=== PATIENT | female | born 1940 | race Caucasian/White ===

== ENCOUNTER → 2018-08-11 13:44 | Outpatient (CLI) | payer MEDICARE, OTHER, SELFPAY ==
--- NOTE | 2018-08-11 14:56 | P.PCN_ITS ---
Cardiac Stress Test Report Referral & Results Date Patient Seen: 08/11/18 Requesting provider: Sergo Quiñonez Indication: Abnormal rest ECG with T-wave inversions laterally Rest ECG: T wave changes as above otherwise unremarkable Procedure Note: Today following both written and verbal informed consent the patient was exercised according to a standard Pedro Luis protocol patient went for a total of 5 min 6 sec achieving a maximum heart rate of 137 maximum systolic blood pressure of 210. This is approximately 7.0 METS. Exercise was terminated at this point because of target having min met. Patient was also given Cardiolite through a previously started Hep-Lock IV by the audiometric technician approximately 1 minute prior to the cessation of exercise. No ST-T segment changes Normal heart rate and blood pressure response Functional aerobic impairment rated-5% on the active scale or 105% of normal Impression: No evidence of ischemia Perfusion imaging reported separately Better than average exercise capacity Please note: Actual ECG tracings can be found in the PACS system.
--- NOTE | 2018-08-12 13:36 | DI.NM.S_ITS ---
DATE OF SERVICE: 08/11/2018 PROCEDURE: Pharmacological perfusion study. INDICATION: Chest pain with underlying hypertension, hyperlipidemia. RADIOPHARMACEUTICAL: 26.1 mCi technetium-99m Myoview IV was injected at stress, and 25.6 mCi technetium-99m Myoview IV was injected at rest. CARDIAC STRESS: Patient underwent exercise perfusion study under the supervision of an attending staff. Patient walked on Pedro Luis protocol for 5 minutes 6 seconds, achieved 7 METs of workload, 96% of target heart rate. There was hypertensive blood pressure response. Resting blood pressure 148/90. Peak blood pressure 210/90. Functional aerobic impairment -5%. Baseline EKG revealed sinus rhythm. Stress EKG did not reveal any obvious inducible ischemic changes. There were no significant arrhythmias. Patient felt fatigued. RAW DATA: There was adequate myocardial uptake. GATED STUDY: Stress LV ejection fraction 89% without any obvious wall motion abnormalities. Resting end-diastolic volume 57 mL. No transient ischemic dilatation. TID ratio 0.86, which is within normal limits. Lung/heart ratio is 0.31, which is within normal limits. MYOCARDIAL PERFUSION SCAN: Stress supine and resting supine images revealed normal myocardial perfusion. CONCLUSION: This is a normal myocardial perfusion study. LV function is preserved. Functional aerobic impairment -5%. Hypertensive blood pressure response. Overall, this is a low-risk myocardial perfusion study. KAMILLE PEÑA - [employer]BER/fn/kv doc#: [id number]/job#: [id number] dd: 08/12/2018 12:55:00 dt: 08/12/2018 13:31:00 DICTATING MD/COPIES TO: Peter Begum MD COPIES MNE: ESTEPHANIA
== END ==
PROVIDERS: Visit Provider Physician Assistant Medical
DX: R07.9 Chest pain, unspecified (principal); I10 Essential (primary) hypertension; E78.5 Hyperlipidemia, unspecified
CPT/HCPCS: 78452; 93016; 93017; 93018; A9502

== ENCOUNTER 2019-06-25 19:42 | Emergency (ER) | payer MEDICARE, OTHER, SELFPAY ==
--- NOTE | 2019-06-25 19:46 | DI.RAD.S_ITS ---
PROCEDURE: XR CHEST 1V INDICATIONS: chest pain TECHNIQUE: One view of the chest was acquired. COMPARISON: None. FINDINGS: Surgical changes and devices: Mild residual contrast is noted within the kidneys from recent CT exam. Lungs and pleura: Lungs are clear. No pleural effusions or pneumothorax. Mediastinum: Mediastinal contours appear normal. Heart size is normal. Bones and chest wall: No suspicious bony lesions. Overlying soft tissues appear unremarkable. IMPRESSION: No acute pulmonary process. Dictated by: Ann Marie Howard M.D. on 06/25/2019 at 20:56 Approved by: Ann Marie Howard M.D. on 06/25/2019 at 20:57
[2019-06-25 20:00] VITALS: BP 174/70; PULSE 70; RESP 18; O2SAT 98
[2019-06-25 20:00] LABS: Add Manual Diff / Slide Review NO; Basophils Absolute Auto 100 /uL (0-100); Basophils Percent Auto 1.2 % (0-2); Eosinophils Absolute Auto 100 /uL (0-450); Eosinophils Percent Auto 2.4 % (2-4); Hemoglobin 13.6 g/dL (12.0-16.0); Lymphocytes Absolute Auto 2400 /uL (1100-4500); Lymphocytes Percent Auto 38.5 % (25-40); Mean Corpuscular HGB Conc 34.1 % (30-36); Mean Corpuscular Hemoglobin 29.7 PG (26-34); Monocytes Absolute Auto 400 /uL (0-900); Monocytes Percent Auto 6.4 % (3-14); Neutrophils Absolute Auto 3200 /uL (1500-7000); Neutrophils Percent Auto 51.5 % (50-75); Platelet Count 231 X10^3/uL (150-400); Red Cell Distribution Width 13.1 % (11.6-14.8); White Blood Cell Count 6.2 X10^3/uL (4.5-11.0)
--- NOTE | 2019-06-25 20:07 | DI.CT.S_ITS ---
PROCEDURE: CT ANGIO CHEST PE PROTOCOL INDICATIONS: + dimer sob TECHNIQUE: After the administration of intravenous contrast, 2 mm thick sections acquired from the pulmonary apices to the posterior costophrenic angles. 3-dimensional maximum intensity projection (MIP) coronal and sagittal reformats were then acquired through the thorax. For radiation dose reduction, the following was used: automated exposure control, adjustment of mA and/or kV according to patient size. COMPARISON: None. FINDINGS: Image quality: Excellent. Pulmonary arteries: Pulmonary arteries are normal in size, and demonstrate no intraluminal filling defects to suggest central pulmonary embolism. Lungs and pleura: 4 mm right middle lobe nodule on series 6 image 165. No priors are available for comparison. No pleural effusions or pneumothorax. Central and peripheral airways are patent. Mediastinum: Heart size is normal, without pericardial effusion. No mediastinal or hilar adenopathy. Thoracic aorta is normal in caliber and enhancement. Esophagus is normal in caliber, without hiatal hernia. Bones and chest wall: No suspicious bony lesions. Ribs and thoracic spine appear intact throughout. Thyroid gland is unremarkable. No axillary or supraclavicular adenopathy. Abdomen: Visualized upper abdominal solid organs appear normal in the early arterial phase of enhancement. IMPRESSION: 1. No pulmonary embolism. 2. 4 mm nonspecific right middle lobe nodule. No priors are available for comparison. Recommend interval followup is below. Fleischner Society criteria for SOLID lung nodule followup. Nodule size (mm)Low-risk patientHigh-risk patient<6 (single or multiple)No routine followup.Optional CT at 12 months. 6-8 (single or multiple)CT at 6-12 months, then optional CT at 18-24 mo.CT at 6-12 months, then CT at 18-24 months. >8 (single)CT, PET-CT, or biopsy at 3 months. Same as for low-risk pts. >8 (multiple)CT at 3-6 months, then optional CT at 18-24 mo.CT at 3-6 months, then CT at 18-24 months. Recommendations do not apply to lung cancer screening, patients with immunosuppression, or patients with known primary cancer. Dictated by: Ann Marie Howard M.D. on 06/25/2019 at 20:43 Approved by: Ann Marie Howard M.D. on 06/25/2019 at 20:46
[2019-06-25 20:14] LABS: Alanine Aminotransferase 31 IU/L (9-52); Albumin 4.1 g/dL (3.5-5.0); Albumin Globulin Ratio 1.2 (1.0-2.8); Alkaline Phosphatase 80 U/L (38-126); Aspartate Aminotransferase 33 IU/L (14-36); BUN Creatinine Ratio 24.4 (6-22); Bilirubin Total 0.3 mg/dL (0.2-1.3); Blood Urea Nitrogen 22 mg/dL (7-17); Calcium 9.4 mg/dL (8.4-10.2); Carbon Dioxide 25 mmol/L (22-32); Chloride 107 mmol/L (98-107); Creatine Kinase 82 U/L (30-135); Estimated Glomerular Filt Rate > 60.0 mL/min (>60); Globulin 3.4 g/dL (1.7-4.1); Glucose 95 mg/dL (80-110); HEMOLYSIS < 15 (0-50); Lipase 313 U/L (23-300); Potassium 3.7 mmol/L (3.4-5.1); Sodium 140 mmol/L (137-145); Total Protein 7.5 g/dL (6.3-8.2)
--- NOTE | 2019-06-25 20:14 | ED_ITS ---
HPI - Recheck/Abnormal Lab/Rx General Chief Complaint: Shortness of Breath/Dyspnea Stated Complaint: abnormal lab results, sent by her doctor Time Seen by Provider: 06/25/19 19:49 Source: patient Mode of arrival: Ambulatory Limitations: no limitations History of Present Illness HPI narrative: Patient is a 78-year-old female who is brought in at the request of her PCP for an elevated D-dimer an abnormal EKG. Patient was seen by her PCP today because she actually had spontaneous bruise on her right ankle from 2 w eeks ago which has now improved. She had an episode of shallow breathing and shortness of breath and dizziness 2 days ago. She says she just did not feel quite right she needed to lay down for most of the night but eventually started feeling better and she was doing okay yesterday. She denies any shortness of breath cough hemoptysis recent travel or any other symptoms. She does have a new right bundle branch block from 2014. MD complaint: abnormal lab Related Data Home Medications Medication Instructions Recorded Confirmed alprazolam 0.25 mg PO DAILY PRN 06/25/19 06/25/19 ascorbic acid (vitamin C) [Vitamin 1,000 mg PO DAILY 06/25/19 06/25/19 C] cholecalciferol (vitamin D3) 1,000 unit PO DAILY 06/25/19 06/25/19 [Vitamin D3] nortriptyline 10 mg PO BEDTIME PRN 06/25/19 06/25/19 vitamins A,C,[id number] [ICaps 1 cap PO DAILY 06/25/19 06/25/19 AREDS] Allergies Allergy/AdvReac Type Severity Reaction Status Date / Time Sulfa (Sulfonamide Allergy Verified 06/25/19 19:53 Antibiotics) Review of Systems Review of Systems Narrative: GENERAL: Denies chills, fatigue, malaise, fever, sweats, travel HEENT: Denies sinus pain, ear pain, sore throat, difficulty swallowing, neck pain RESPIRATORY: See HPI CARDIOVASCULAR: Denies chest pain, palpitations, orthopnea, edema GASTROINTESTINAL: Denies nausea, vomiting, abdominal pain, diarrhea, cons tipation, melena. : Denies dysuria, frequency, incontinence, hematuria, urinary retention, flank pain. MUSCULOSKELETAL: Denies weakness, joint pain, or bony pain SKIN: Healing contusion right leg NEUROLOGIC: Denies weakness, dizziness, headache, numbness, change in speech, confusion PSYCHIATRIC: No concerning psychosocial issues. 12 point review of systems is negative except for those stated above and HPI Patient History Medical History Hyperlipidemia (Acute) Hypertension (Acute) Substance Use Type: does not use Exam Initial Vital Signs Initial Vital Signs: Vital Signs Pulse Rate 70 06/25/19 20:00 Respiratory Rate 18 06/25/19 20:00 Blood Pressure 174/70 H 06/25/19 20:00 Pulse Oximetry 98 06/25/19 20:00 GENERAL: Well-appearing, well-nourished and in no acute distress. HEENT: Head atraumatic,EOMI, pupils reactive, face symmetric, moist mucous membranes CARDIOVASCULAR: Regular rate and rhythm without murmurs, rubs or gallops. RESPIRATORY: Breath sounds equal bilaterally, no wheezes rales or rhonchi. ABDOMEN: Soft, nontender. Normoactive bowel sounds all 4 quadrants. No guarding or rebound. EXTREMITIES: Normal range of motion, no clubbing or edema. Neurovascularly intact. no significant swelling no bony deformity distal pedal pulse intact NEUROLOGICAL: Alert and oriented x4.Normal gait and speech. SKIN: Warm, dry, no laceration, no petechiae, no rashes or lesions. healing contusion right ankle Course Orders Ordered: ED Orders 06/25/19 19:46 XR chest 1V Stat EKG-12 Lead Stat 06/25/19 19:50 BNP [B Type Natriuretic Peptide] Stat Complete Blood Count AUTO DIFF Stat Comprehensive Metabolic Panel Stat Lipase Stat Partial Thromboplastin Time Stat Prothrombin Time INR Stat Troponin & CK Cardiac Panel Stat 06/25/19 19:55 EKG-12 Lead Stat 06/25/19 20:07 CT angio chest PE protocol Stat 06/25/19 20:52 US periph venous low extrem bi Stat Discontinued Medications Sodium Chloride (Normal Saline 0.9%) 1,000 mls @ 150 mls/hr IV CONT SANDRA Last Admin: 06/25/19 20:46 Dose: 150 mls/hr Documented by: DINA Vital Signs Vital signs: Vital Signs - 8 hr 06/25/19 20:00 06/25/19 20:15 06/25/19 20:49 Pulse Rate 70 78 74 Respiratory Rate 18 18 12 Blood Pressure [Left Arm] 174/70 H 148/74 H 143/71 H Pulse Oximetry 98 98 98 06/25/19 21:00 06/25/19 21:17 Pulse Rate 64 64 Respiratory Rate 15 11 L Blood Pressure [Left Arm] 140/68 135/68 Pulse Oximetry 95 98 MDM - Recheck/Abnormal Lab/Rx Lab Data Attestation: I reviewed the patient's lab results. Result diagrams: 06/25/19 19:50 06/25/19 19:50 Labs: Lab Results 06/25/19 06/25/19 06/25/19 Range/Units 19:50 19:50 19:50 WBC 6.2 (4.5-11.0) X10^3/uL RBC 4.60 (4.0-5.2) X10^6/uL Hgb 13.6 (12.0-16.0) g/dL Hct 40.0 (36-46) % MCV 87.0 (80-100) fL MCH 29.7 (26-34) PG MCHC 34.1 (30-36) % RDW 13.1 (11.6-14.8) % Plt Count 231 (150-400) X10^3/uL Neut % (Auto) 51.5 (50-75) % Lymph % (Auto) 38.5 (25-40) % [place] % (Auto) 6.4 (3-14) % Eos % (Auto) 2.4 (2-4) % Baso % (Auto) 1.2 (0-2) % Neut # (Auto) 3200 (7336-5294) /uL Lymph # (Auto) 2400 (6193-8801) /uL [place] # (Auto) 400 (0-900) /uL Eos # (Auto) 100 (0-450) /uL Baso # (Auto) 100 (0-100) /uL PT (10.1-12.7) SECONDS INR (0.9-1.3) APTT (26.4-36.2) SECONDS Sodium 140 (137-145) mmol/L Potassium 3.7 (3.4-5.1) mmol/L Chloride 107 (98-107) mmol/L Carbon Dioxide 25 (22-32) mmol/L BUN 22 H (7-17) mg/dL Creatinine 0.90 (0.52-1.04) mg/dL Estimated GFR > 60.0 (>60) mL/min BUN/Creatinine Ratio 24.4 H (6-22) Glucose 95 (80-110) mg/dL Calcium 9.4 (8.4-10.2) mg/dL Total Bilirubin 0.3 (0.2-1.3) mg/dL AST 33 (14-36) IU/L ALT 31 (9-52) IU/L Alkaline Phosphatase 80 (38-126) U/L Total Creatine Kinase 82 (30-135) U/L CK-MB (CK-2) TNP CK-MB (CK-2) Rel Index TNP Troponin I < 0.012 (0.01-0.034) ng/mL B-Natriuretic Peptide < 100 (<100) Total Protein 7.5 (6.3-8.2) g/dL Albumin 4.1 (3.5-5.0) g/dL Globulin 3.4 (1.7-4.1) g/dL Albumin/Globulin Ratio 1.2 (1.0-2.8) Lipase 313 H (23-300) U/L 06/25/19 Range/Units 19:50 WBC (4.5-11.0) X10^3/uL RBC (4.0-5.2) X10^6/uL Hgb (12.0-16.0) g/dL Hct (36-46) % MCV (80-100) fL MCH (26-34) PG MCHC (30-36) % RDW (11.6-14.8) % Plt Count (150-400) X10^3/uL Neut % (Auto) (50-75) % Lymph % (Auto) (25-40) % [place] % (Auto) (3-14) % Eos % (Auto) (2-4) % Baso % (Auto) (0-2) % Neut # (Auto) (0274-4143) /uL Lymph # (Auto) (0085-3284) /uL [place] # (Auto) (0-900) /uL Eos # (Auto) (0-450) /uL Baso # (Auto) (0-100) /uL PT 11.4 (10.1-12.7) SECONDS INR 1.0 (0.9-1.3) APTT 30 (26.4-36.2) SECONDS Sodium (137-145) mmol/L Potassium (3.4-5.1) mmol/L Chloride (98-107) mmol/L Carbon Dioxide (22-32) mmol/L BUN (7-17) mg/dL Creatinine (0.52-1.04) mg/dL Estimated GFR (>60) mL/min BUN/Creatinine Ratio (6-22) Glucose (80-110) mg/dL Calcium (8.4-10.2) mg/dL Total Bilirubin (0.2-1.3) mg/dL AST (14-36) IU/L ALT (9-52) IU/L Alkaline Phosphatase (38-126) U/L Total Creatine Kinase (30-135) U/L CK-MB (CK-2) CK-MB (CK-2) Rel Index Troponin I (0.01-0.034) ng/mL B-Natriuretic Peptide (<100) Total Protein (6.3-8.2) g/dL Albumin (3.5-5.0) g/dL Globulin (1.7-4.1) g/dL Albumin/Globulin Ratio (1.0-2.8) Lipase (23-300) U/L Imaging Data CT scan - chest: Radiologist's impression: PROCEDURE: CT ANGIO CHEST PE PROTOCOL INDICATIONS: + dimer sob TECHNIQUE: After the administration of intravenous contrast, 2 mm thick sections acquired from the pulmonary apices to the posterior costophrenic angles. 3-dimensional maximum intensity projection (MIP) coronal and sagittal reformats were then acquired through the thorax. For radiation dose reduction, the following was used: automated exposure control, adjustment of mA and/or kV according to patient size. COMPARISON: None. FINDINGS: Image quality: Excellent. Pulmonary arteries: Pulmonary arteries are normal in size, and demonstrate no intraluminal filling defects to suggest central pulmonary embolism. Lungs and pleura: 4 mm right middle lobe nodule on series 6 image 165. No priors are available for comparison. No pleural effusions or pneumothorax. Central and peripheral airways are patent. Mediastinum: Heart size is normal, without pericardial effusion. No mediastinal or hilar adenopathy. Thoracic aorta is normal in caliber and enhancement. Esophagus is normal in caliber, without hiatal hernia. Bones and chest wall: No suspicious bony lesions. Ribs and thoracic spine appear intact throughout. Thyroid gland is unremarkable. No axillary or supraclavicular adenopathy. Abdomen: Visualized upper abdominal solid organs appear normal in the early arterial phase of enhancement. IMPRESSION: 1. No pulmonary embolism. 2. 4 mm nonspecific right middle lobe nodule. No priors are available for comparison. Recommend interval followup is below. Fleischner Society criteria for SOLID lung nodule followup. Nodule size (mm)Low-risk patientHigh-risk patient<6 (single or multiple)No r outine followup.Optional CT at 12 months. 6-8 (single or multiple)CT at 6-12 months, then optional CT at 18-24 mo.CT at 6-12 months, then CT at 18-24 months. >8 (single)CT, PET-CT, or biopsy at 3 months. Same as for low-risk pts. >8 (multiple)CT at 3-6 months, then optional CT at 18-24 mo.CT at 3-6 months, then CT at 18-24 months. Recommendations do not apply to lung cancer screening, patients with immunosuppression, or patients with known primary cancer. Dictated by: Ann Marie Howard M.D. on 06/25/2019 at 20:43 Venous US: Radiologist's impression: PROCEDURE: US PERIPH VENOUS LOW EXTREM BI INDICATIONS: ELEVATED D-DIMER; EDEMA TECHNIQUE: Real-time imaging, as well as color and pulse Doppler interrogation, were performed of the deep veins of both legs from the inguinal ligament to the popliteal fossa. COMPARISON: None. FINDINGS: Right: The common femoral, femoral and popliteal veins are normally compressible, and free of intraluminal thrombus. Color and pulse Doppler demonstrate normal phasic intravascular flow. There is normal augmentation response to distal compression maneuver. Left: The common femoral, femoral and popliteal veins are normally compressible, and free of intraluminal thrombus. Color and pulse Doppler demonstrate normal phasic intravascular flow. There is normal augmentation response to distal compression maneuver. IMPRESSION: No deep venous thrombosis. Dictated by: Ann Marie Howard M.D. on 06/25/2019 at 21:46 ECG Data Attestation: I personally reviewed and interpreted this ECG as follows: Prior ECG tracings: available for review (Stent with records from 2014) Interpretation: Normal sinus rhythm rate 72 p.r. 158 QRS 32 QTC 74 right bundle branch block noted new from 1999 MDM Narrative Medical decision making narrative: Patient has a negative troponin and no chest pain no persistent shortness of breath or hemoptysis. She has no signs of a pulmonary embolism. She had Doppler done on her right leg today which was negative she actually had bilateral Dopplers done in the emergency department which are both negative. No sign of blood clot. Patient will be discharged home. Discussed with her that she actually does have a pulmonary nodule which needs to be followed up as an outpatient. I discussed all findings with the patient, Education has been performed regarding treatment plan, diagnosis, warning signs and symptoms and all concerns have been addressed. Verbally agree with and understood all of the above. Discharge Plan Departure Patient Disposition: Home Clinical Impression: Feared complaint without diagnosis, Incidental lung nodule Discharge Date/Time: 06/25/19 22:00 Instructions: DI for Pulmonary Nodule Activity Restrictions/Additional Instructions: *You have been diagnosed with no blood clot is found. *What to do: You do have a very small pulmonary nodule in her lung. This needs to be followed with her PCP with repeat x-ray or CT in about 3 months *Continue to take medications as directed *Follow up with your primary care provider in 2-3 days *Return to ER if you should have chest pain, shortness of breath or palpitations or any new, worsening or concerning symptoms Prescriptions: No Action ascorbic acid (vitamin C) [Vitamin C] 1,000 mg tablet 1,000 mg PO DAILY RF: 0 alprazolam 0.25 mg tablet 0.25 mg PO DAILY PRN (Reason: Anxiety) RF: 0 nortriptyline 10 mg capsule 10 mg PO BEDTIME PRN (Reason: Insomnia) RF: 0 cholecalciferol (vitamin D3) [Vitamin D3] 1,000 unit capsule 1,000 unit PO DAILY RF: 0 ICaps AREDS [id number] capsule 1 cap PO DAILY RF: 0 Referrals: Pat Leonard ARNP [Non-Staff] -
[2019-06-25 20:15] VITALS: BP 148/74; PULSE 78; RESP 18; O2SAT 98
[2019-06-25 20:26] LABS: Troponin I < 0.012 ng/mL (0.01-0.034)
--- NOTE | 2019-06-25 20:29 | PC.NURSE ---
Pt w/ episode of tachycardia, shortness of breath and diaphoresis on Friday. Took ASA and stayed in bed . Right lower ext w/ bruise on top of ankle from fall 2 weeks ago and congested veins as compared to left leg. No calf tenderness.
[2019-06-25 20:35] LABS: Prothrombin Time 11.4 SECONDS (10.1-12.7)
[2019-06-25 20:38] LABS: PTT Partial Thromboplastin Tim 30 SECONDS (26.4-36.2)
[2019-06-25 20:40] LABS: B Type Natriuretic Peptide < 100 (<100)
[2019-06-25] MEDS: SODIUM CHLORIDE 0.9% 1,000 ML 150 ML IV (20:46)
[2019-06-25 20:49] VITALS: BP 143/71; PULSE 74; RESP 12; O2SAT 98
--- NOTE | 2019-06-25 20:52 | DI.US.S_ITS ---
PROCEDURE: US PERIPH VENOUS LOW EXTREM BI INDICATIONS: ELEVATED D-DIMER; EDEMA TECHNIQUE: Real-time imaging, as well as color and pulse Doppler interrogation, were performed of the deep veins of both legs from the inguinal ligament to the popliteal fossa. COMPARISON: None. FINDINGS: Right: The common femoral, femoral and popliteal veins are normally compressible, and free of intraluminal thrombus. Color and pulse Doppler demonstrate normal phasic intravascular flow. There is normal augmentation response to distal compression maneuver. Left: The common femoral, femoral and popliteal veins are normally compressible, and free of intraluminal thrombus. Color and pulse Doppler demonstrate normal phasic intravascular flow. There is normal augmentation response to distal compression maneuver. IMPRESSION: No deep venous thrombosis. Dictated by: Ann Marie Howard M.D. on 06/25/2019 at 21:46 Approved by: Ann Marie Howard M.D. on 06/25/2019 at 21:46
[2019-06-25 21:00] VITALS: BP 140/68; PULSE 64; RESP 15; O2SAT 95
[2019-06-25 21:17] VITALS: BP 135/68; PULSE 64; RESP 11; O2SAT 98
== END 2019-06-25 22:00 | disposition home or self-care (01) ==
PROVIDERS: Emergency Provider Emergency Medicine
DX: Z71.1 Person with feared health complaint in whom no diagnosis is made (principal); R91.1 Solitary pulmonary nodule; R79.89 Other specified abnormal findings of blood chemistry; R07.9 Chest pain, unspecified; R60.9 Edema, unspecified; R06.02 Shortness of breath; R00.0 Tachycardia, unspecified
CPT/HCPCS: 36415; 71045; 71275; 80053; 82550; 83690; 83880; 84484; 85025; 85610; 85730; 93005; 93970; 99283; 99285; Q9967

== ENCOUNTER 2021-04-10 11:08 | Emergency (ER) | payer MEDICARE, OTHER, SELFPAY ==
[2021-04-10] VITALS (21 sets, daily range): BP systolic 122–201; BP diastolic 65–96; PULSE 71–91; RESP 15–16; TEMP 36.6; O2SAT 91–98; BMI 23.3
--- NOTE | 2021-04-10 12:29 | DI.RAD.S_ITS ---
PROCEDURE: XR LUMBAR SPINE 2-3V INDICATIONS: back pain x 1 week TECHNIQUE: 3 views of the lumbar spine were acquired. COMPARISON: [facility], CR, XR CHEST 1V, 06/25/2019, 20:25. [facility], CT, CT ANGIO CHEST PE PROTOCOL, 06/25/2019, 20:27. FINDINGS: Bones: 5 [id number] vertebrae are present. There is grade 1 L4-L5 anterolisthesis secondary to facet hypertrophy. Loss of height noted in the T11 and T12 vertebral bodies compatible with compression fractures of indeterminate age. T11 compression fracture results in approximately 30% loss of normal vertebral body height. T12 compression fracture results in approximately 15% loss of normal vertebral body height. No suspicious bony lesions. Soft tissues: Overlying bowel gas pattern is normal. No suspicious soft tissue calcifications. IMPRESSION: T11 and T12 vertebral body compression deformities of indeterminate age. Dictated by: Tammi Carrion MD, PhD on 04/10/2021 at 13:07 Approved by: Tammi Carrion MD, PhD on 04/10/2021 at 13:09
--- NOTE | 2021-04-10 12:35 | ED.BACK ---
HPI - Back Pain/Injury <Nickie Garcia, MILLER HELPER-BC - Last Filed: 04/10/21 18:19> General Chief Complaint: Back Pain/Injury Stated Complaint: y hospital for special care visit, excruciating back pain,cant up/down Time Seen by Provider: 04/10/21 11:20 Source: patient Mode of arrival: Ambulatory Limitations: no limitations History of Present Illness HPI Narrative: The patient is an 80-year-old female nonsmoker with history hypertension hyperlipidemia presents with a chief complaint of lower back pain. Has been going on since last week when she picked up some heavy flower pots. She did go to the emergency department at an outside facility last Friday with abdominal pain, received to CT abdomen pelvis with contrast rule out appendicitis that noted a very small likely renal cell carcinoma. She states that she has follow-up arranged for this with a workers compensation claims supervisor. She states that she came in today because her back pain has been worse over the past few days. She has not taken any bgef-zkp-[id number] medications at home. She does wonder if having her colonoscopy yesterday with positioning might have made it worse. She denies any abdominal pain at this point in time. She states that is much improved. She states that her lower back hurts, does not radiate down the legs. She notes decreased range of Motion. She denies any numbness or tingling. She denies any new incontinence of bowel or bladder, states are incontinence is at baseline. Related Data Home Medications Medication Instructions Recorded Confirmed alprazolam 0.25 mg tablet 0.25 mg PO DAILY PRN 06/25/19 06/25/19 ascorbic acid (vitamin C) 1,000 mg 1,000 mg PO DAILY 06/25/19 06/25/19 tablet (Vitamin C) cholecalciferol (vitamin D3) 25 1,000 unit PO DAILY 06/25/19 06/25/19 mcg (1,000 unit) capsule (Vitamin D3) nortriptyline 10 mg capsule 10 mg PO BEDTIME PRN 06/25/19 06/25/19 vitamins A,C,J-tlam-zoizhz 14,320 1 cap PO DAILY 06/25/19 06/25/19 unit-226 mg-200 unit capsule (ICaps AREDS) Previous Rx's Medication Instructions Recorded cyclobenzaprine 10 mg tablet 10 mg PO TID PRN #20 tab 04/10/21 hydrocodone 5 mg-acetaminophen 325 1 tab PO Q4-6H PRN #14 tab 04/10/21 mg tablet lidocaine 5 % topical patch 1 patch TOPICAL DAILY PRN #15 ea 04/10/21 Allergies Allergy/AdvReac Type Severity Reaction Status Date / Time Sulfa (Sulfonamide Allergy Verified 06/25/19 19:53 Antibiotics) Review of Systems <REJI Bergeron - Last Filed: 04/10/21 18:19> Review of Systems Narrative: GENERAL: Denies chills, fatigue, malaise, fever, sweats. HEENT: Denies sinus pain, ear pain, sore throat, difficulty swallowing, dizziness. RESPIRATORY: Denies dyspnea, cough, wheezing, hemoptysis, sputum. CARDIOVASCULAR: Denies chest pain, palpitations, orthopnea, edema, GASTROINTESTINAL: Denies nausea, vomiting, abdominal pain, diarrhea, constipation, melena. : Denies dysuria, frequency, incontinence, hematuria, urinary retention. MUSCULOSKELETAL: See HPI SKIN: Denies rash, skin lesions, or other NEUROLOGIC: Denies weakness, headache, numbness, change in speech, confusion, seizures, incoordination. PSYCHIATRIC: No concerning psychosocial issues. 12 point review of systems is negative except for those stated above Patient History <REJI Bergeron - Last Filed: 04/10/21 18:19> Medical History (Updated 04/10/21 @ 15:23 by REJI Bergeron) Hyperlipidemia Hypertension Social History Smoking Status: Never smoker Smoking Status: Never smoker alcohol intake frequency: 0-2 drinks per day Substance Use Type: does not use Exam <REJI Bergeron - Last Filed: 04/10/21 18:19> Narrative Exam Narrative: GENERAL: This is a well-nourished, well-developed patient, no acute distress HEAD: Atraumatic. Normocephalic. No temporal or scalp tenderness. EYES: Pupils equal round and reactive. Extraocular motions intact. No scleral icterus. No injection or drainage. ENT: Nose without bleeding, purulent drainage or septal hematoma. Wearing a mask. Airway patent. NECK: Trachea midline. No JVD or lymphadenopathy. Supple, nontender, no meningeal signs. CARDIOVASCULAR: Regular rate and rhythm without murmurs, gallops, or rubs. RESPIRATORY: Clear to auscultation. Breath sounds equal bilaterally. No wheezes, rales, or rhonchi. GASTROINTESTINAL: Abdomen soft, non-tender, nondistended. No guarding. EXTREMITIES: No clubbing, cyanosis, or edema. No joint tenderness, effusion, or edema noted. Strength is equal upper lower extremities bilaterally. Able to flex spine ox. Sensation intact bilateral thighs. BACK: Diffuse pain to palpation lumbar spine, pain to palpation bilateral paraspinal muscles lumbar area, no pain to C or T-spine palpation. NEURO: AOx3. SKIN: No rash or erythema on visible skin. No rashes on back. Initial Vital Signs Initial Vital Signs: Vital Signs Pulse Rate 85 04/10/21 11:27 Pulse Oximetry 97 04/10/21 11:27 <Hussein Onofre DO - Last Filed: 04/10/21 18:21> Initial Vital Signs Initial Vital Signs: Vital Signs Pulse Rate 85 04/10/21 11:27 Pulse Oximetry 97 04/10/21 11:27 Course <REJI Bergeron - Last Filed: 04/10/21 18:19> Orders Ordered: ED Orders 04/10/21 12:29 XR lumbar spine 2-3V Stat 04/10/21 13:45 Urine Microscopic Stat 04/10/21 15:44 EKG-12 Lead Routine EKG-12 Lead Stat Discontinued Medications Hydrocodone Bitart/Acetaminophen (Hydrocodone/Acet 5/325 Tablet) 1 tab PO NOW ONE Stop: 04/10/21 12:30 Last Admin: 04/10/21 13:05 Dose: 1 tab Documented by: PALAK Cyclobenzaprine HCl (Cyclobenzaprine 10 Mg Tablet) 10 mg PO NOW ONE Stop: 04/10/21 12:30 Last Admin: 04/10/21 13:05 Dose: 10 mg Documented by: PALAK Sodium Chloride (Normal Saline 0.9%) 1,000 mls @ 1,000 mls/hr IV BOLUS ONE Stop: 04/10/21 17:02 Last Infusion: 04/10/21 17:20 Dose: 0 mls/hr Documented by: Admin: 04/10/21 16:05 Dose: 1,000 mls/hr Documented by: ATAYLOR Lidocaine (Lidocaine Patch 1 Each Adh..Patch) 1 each TOP NOW ONE Stop: 04/10/21 12:30 Last Admin: 04/10/21 13:05 Dose: 1 each Documented by: ATAYLOR Lidocaine (Remove Lidocaine Patch) 1 each TOP BEDTIME SANDRA Vital Signs Vital signs: Vital Signs - 8 hr 04/10/21 11:27 04/10/21 11:29 04/10/21 11:30 Temperature 97.9 F Pulse Rate 85 85 84 Respiratory Rate 16 Blood Pressure 201/96 H 188/87 H Pulse Oximetry 97 98 97 04/10/21 12:00 04/10/21 12:30 04/10/21 13:42 Temperature Pulse Rate 84 91 H 81 Respiratory Rate Blood Pressure 172/80 H 171/81 H Pulse Oximetry 98 97 97 04/10/21 13:44 04/10/21 14:00 04/10/21 14:30 Temperature Pulse Rate 82 79 74 Respiratory Rate Blood Pressure 157/79 H Pulse Oximetry 98 96 91 04/10/21 15:03 04/10/21 15:42 04/10/21 15:50 Temperature Pulse Rate 75 73 71 Respiratory Rate 16 Blood Pressure 131/65 144/72 H Pulse Oximetry 95 97 98 04/10/21 16:00 04/10/21 16:10 04/10/21 16:20 Temperature Pulse Rate 71 78 84 Respiratory Rate Blood Pressure 154/75 H 156/78 H 149/80 H Pulse Oximetry 97 97 97 04/10/21 16:30 04/10/21 16:40 04/10/21 16:50 Temperature Pulse Rate 78 79 79 Respiratory Rate 15 Blood Pressure 163/86 H 122/79 169/75 H Pulse Oximetry 97 95 96 04/10/21 17:00 04/10/21 17:10 04/10/21 17:21 Temperature Pulse Rate 83 78 82 Respiratory Rate Blood Pressure 163/77 H 148/66 H 153/71 H Pulse Oximetry 98 97 95 <Hussein Onofre, - Last Filed: 04/10/21 18:21> Orders Ordered: ED Orders 04/10/21 12:29 XR lumbar spine 2-3V Stat 04/10/21 13:45 Urine Microscopic Stat 04/10/21 15:44 EKG-12 Lead Routine EKG-12 Lead Stat Discontinued Medications Hydrocodone Bitart/Acetaminophen (Hydrocodone/Acet 5/325 Tablet) 1 tab PO NOW ONE Stop: 04/10/21 12:30 Last Admin: 04/10/21 13:05 Dose: 1 tab Documented by: PALAK Cyclobenzaprine HCl (Cyclobenzaprine 10 Mg Tablet) 10 mg PO NOW ONE Stop: 04/10/21 12:30 Last Admin: 04/10/21 13:05 Dose: 10 mg Documented by: PALAK Sodium Chloride (Normal Saline 0.9%) 1,000 mls @ 1,000 mls/hr IV BOLUS ONE Stop: 04/10/21 17:02 Last Infusion: 04/10/21 17:20 Dose: 0 mls/hr Documented by: Admin: 04/10/21 16:05 Dose: 1,000 mls/hr Documented by: PALAK Lidocaine (Lidocaine Patch 1 Each Adh..Patch) 1 each TOP NOW ONE Stop: 04/10/21 12:30 Last Admin: 04/10/21 13:05 Dose: 1 each Documented by: PALAK Lidocaine (Remove Lidocaine Patch) 1 each TOP BEDTIME PENDING SALE TO [facility] Vital Signs Vital signs: Vital Signs - 8 hr 04/10/21 11:27 04/10/21 11:29 04/10/21 11:30 Temperature 97.9 F Pulse Rate 85 85 84 Respiratory Rate 16 Blood Pressure 201/96 H 188/87 H Pulse Oximetry 97 98 97 04/10/21 12:00 04/10/21 12:30 04/10/21 13:42 Temperature Pulse Rate 84 91 H 81 Respiratory Rate Blood Pressure 172/80 H 171/81 H Pulse Oximetry 98 97 97 04/10/21 13:44 04/10/21 14:00 04/10/21 14:30 Temperature Pulse Rate 82 79 74 Respiratory Rate Blood Pressure 157/79 H Pulse Oximetry 98 96 91 04/10/21 15:03 04/10/21 15:42 04/10/21 15:50 Temperature Pulse Rate 75 73 71 Respiratory Rate 16 Blood Pressure 131/65 144/72 H Pulse Oximetry 95 97 98 04/10/21 16:00 04/10/21 16:10 04/10/21 16:20 Temperature Pulse Rate 71 78 84 Respiratory Rate Blood Pressure 154/75 H 156/78 H 149/80 H Pulse Oximetry 97 97 97 04/10/21 16:30 04/10/21 16:40 04/10/21 16:50 Temperature Pulse Rate 78 79 79 Respiratory Rate 15 Blood Pressure 163/86 H 122/79 169/75 H Pulse Oximetry 97 95 96 04/10/21 17:00 04/10/21 17:10 04/10/21 17:21 Temperature Pulse Rate 83 78 82 Respiratory Rate Blood Pressure 163/77 H 148/66 H 153/71 H Pulse Oximetry 98 97 95 MDM - Back Pain/Injury <REJI Bergeron - Last Filed: 04/10/21 18:19> Lab Data Labs: Lab Results 04/10/21 Range/Units 13:45 Urine RBC 0-1/hpf (0-5/HPF) Urine WBC 0-1/hpf (0-5/HPF) Ur Squamous Epith Cells 0-1 /hpf (0-5/HPF) Urine Bacteria None seen (None) Ur Culture Indicated? Cult not indicated Urine Dip Bedside Urine Glucose Negative Bedside Urine Bilirubin - Negative Bedside Urine Ketone +/- 5 Urine Specific [place] 1.015 Bedside Urine Occult Blood + Bedside Urine pH 6.0 Bedside Urine Protein - Negative Bedside Urine Urobilinogen - Negative Bedside Urine Nitrite - Negative Bedside Urine Leukocytes - Negative Esterase Imaging Data lumbar xray : Radiologist's Impression: [address] [place] [id number] ReportSigned Patient: KAMILLE PEÑA AM[facility]#: [id number]: 1940Acct:[id number]/Sex: 80 / FDate of Service: 04/10/21Loc: EDAccession Number: [id number] Procedure: XR lumbar spine 2-3V Ordering Provider: Nickie Garcia PROCEDURE: XR LUMBAR SPINE 2-3V INDICATIONS: back pain x 1 week TECHNIQUE: 3 views of the lumbar spine were acquired. COMPARISON: [facility], CR, XR CHEST 1V, 06/25/2019, 20:25. [facility], CT, CT ANGIO CHEST PE PROTOCOL, 06/25/2019, 20:27. FINDINGS: Bones: 5 xth-myp-acxsppc vertebrae are present. There is grade 1 L4-L5 anterolisthesis secondary to facet hypertrophy. Loss of height noted in the T11 and T12 vertebral bodies compatible with compression fractures of indeterminate age. T11 compression fracture results in approximately 30% loss of normal vertebral body height. T12 compression fracture results in approximately 15% loss of normal vertebral body height. No suspicious bony lesions. Soft tissues: Overlying bowel gas pattern is normal. No suspicious soft tissue calcifications. IMPRESSION: T11 and T12 vertebral body compression deformities of indeterminate age. Dictated by: Tammi Carrion MD, PhD on 04/10/2021 at 13:07 Approved by: Tammi Carrion MD, PhD on 04/10/2021 at 13:09 ECG Data Attestation: I personally reviewed and interpreted this ECG as follows: Interpretation: NSR HR 80, MS 146, grs 138, flipped t waves noted MDM Narrative Medical decision making narrative: The patient is an 80-year-old female who presents with a chief complaint of lower back pain that has been worse over the past few days. X-rays indicate compression fractures in T11 and T12. Pain control is achieved with the above-stated measure urgency was able to walk around independently with a walker, stating she felt much improved. She has no red flag symptoms of incontinence of bowel that is new, or saddle anesthesia. I discussed at length follow up with ortho after discussing patient and plan of care with Dr Onofre. Patient states accordance of plan and has no questions or concerns. While the patient was getting up to be discharged, she felt very weak and was helped back to the stretcher. She states that she has not had anything to eat for 28 hours. Her vital signs were stable. EKG was done, reviewed with Dr Onofre and in noted to have slight changes from her prior several years ago, however patient declines any chest pain or shortness of breath. Received 1 L of IV fluid. It is possible that not eating for 28 hours as well as being to hydrated related to her previous colonoscopy, combined with pain medicine led to an episode of weakness. Later her vital signs are stable, she is requesting to go home. I discussed at length strict ER return precautions of incontinence of bowel, as well as neurological changes, or any acute concerns as well as repeat episodes of near-syncope. Patient and spouse have no questions or concerns upon discharge states understanding of return precautions as well as follow-up care. <Hussein Onofre, DO - Last Filed: 04/10/21 18:21> Lab Data Labs: Lab Results 04/10/21 Range/Units 13:45 Urine RBC 0-1/hpf (0-5/HPF) Urine WBC 0-1/hpf (0-5/HPF) Ur Squamous Epith Cells 0-1 /hpf (0-5/HPF) Urine Bacteria None seen (None) Ur Culture Indicated? Cult not indicated Urine Dip Bedside Urine Glucose Negative Bedside Urine Bilirubin - Negative Bedside Urine Ketone +/- 5 Urine Specific [place] 1.015 Bedside Urine Occult Blood + Bedside Urine pH 6.0 Bedside Urine Protein - Negative Bedside Urine Urobilinogen - Negative Bedside Urine Nitrite - Negative Bedside Urine Leukocytes - Negative Esterase Discharge Plan Departure Patient Disposition: Home Clinical Impression: Back pain Qualifiers: Back pain location: low back pain Chronicity: acute Back pain laterality: bilateral Sciatica presence: without sciatica Qualified Code(s): M54.5 - Low back pain Compression fx, thoracic spine Qualifiers: Encounter type: initial encounter Thoracic vertebra fracture level: T11 Qualified Code(s): S22.080A - Wedge compression fracture of T11-T12 vertebra, initial encounter for closed fracture Compression fracture of T12 vertebra Qualifiers: Encounter type: initial encounter Qualified Code(s): S22.080A - Wedge compression fracture of T11-T12 vertebra, initial encounter for closed fracture Instructions: How to Choose and Use a Walker, DI for Vertebral Fracture, DI for Low Back Pain, Thoracic Back Pain Activity Restrictions/Additional Instructions: Thank you for trusting us with your care today. As discussed, we did find 2 compression fractures today in T11 and T12. These are of indeterminate age, however you are having pain in that area. I sent 3 prescriptions to [facility]. This includes cyclobenzaprine which is a muscle relaxer can be sedating, [place] which is a pain medication as well as lidocaine pain patches. I have given you a prescription of a narcotic for pain. Be aware that this can be constipating and sedating. I encouraged taking with a stool softener, pushing fluids and fiber. Do not take and drive, operate heavy machinery, etc. Do not combine it with any other sedating substances such as alcohol. The combination of narcotics and alcohol and/or other sedatives can be lethal. Please be aware that we do not provide refills of controlled substances in the emergency department. Please follow up with her primary care provider. Please with primary care provider in the next few days. Please also follow-up with [facility], I have included contact information for them as well as Dr. Jones, the child support specialist. Please come back to the emergency department for any acute concerns such as new incontinence or numbness in your groin. Prescriptions: New cyclobenzaprine 10 mg tablet 10 mg PO TID PRN (Reason: muscle spasm) Qty: 20 RF: 0 hydrocodone-acetaminophen 5-325 mg tablet 1 tab PO Q4-6H PRN (Reason: pain) Qty: 14 RF: 0 lidocaine 5 % adhesive patch,medicated 1 patch topical DAILY PRN (Reason: pain) Qty: 15 RF: 0 No Action ascorbic acid (vitamin C) [Vitamin C] 1,000 mg tablet 1,000 mg PO DAILY RF: 0 alprazolam 0.25 mg tablet 0.25 mg PO DAILY PRN (Reason: Anxiety) RF: 0 nortriptyline 10 mg capsule 10 mg PO BEDTIME PRN (Reason: Insomnia) RF: 0 cholecalciferol (vitamin D3) [Vitamin D3] 1,000 unit capsule 1,000 unit PO DAILY RF: 0 ICaps AREDS [id number] osrl-eu-pcpw capsule 1 cap PO DAILY RF: 0 Referrals: [facility] [Provider Group] Loyd Cadena MD [Primary Care Provider] - Olive Jones MD [Physician] - <Hussein Onofre DO - Last Filed: 04/10/21 18:21> [facility]: Dr Onofre Co-Sign Statement: I was available for consultation during this patient's emergency department visit. This chart is signed by myself for administrative purposes only. I did not have direct contact with this patient during this visit. They were seen independently by the APC.
[2021-04-10] MEDS: HYDROCODONE/ACET 5/325 TABLET 1 TAB PO (13:05)
[2021-04-10] MEDS: LIDOCAINE PATCH 1 EACH ADH..PATCH TOP (13:05)
[2021-04-10] MEDS: CYCLOBENZAPRINE 10 MG TABLET PO (13:05)
[2021-04-10 14:23] LABS: Bacteria Urine None Seen
[2021-04-10 14:32] LABS: Culture Indicated Urine Cult Not Indicated; RBC Urine 0-1/HPF (0-5/HPF); Squamous Epithelial Cell Urine 0-1 /HPF (0-5/HPF); WBC Urine 0-1/HPF (0-5/HPF)
[2021-04-10] MEDS: SODIUM CHLORIDE 0.9% 1,000 ML 1000 ML IV (16:05)
--- NOTE | 2021-04-10 16:10 | PC.NURSE ---
Provide pt with turkey sandwich and yogurt.
== END 2021-04-10 17:31 | disposition home or self-care (01) ==
PROVIDERS: Emergency Provider Nurse Practitioner Family; PCP Family Medicine
DX: S22.080A Wedge compression fracture of T11-T12 vertebra, initial encounter for closed fracture (principal); M54.5 Low back pain; X50.9XXA Other and unspecified overexertion or strenuous movements or postures, initial encounter
CPT/HCPCS: 72100; 81003; 81015; 93005; 96360; 99284

== ENCOUNTER → 2021-12-21 11:44 | Outpatient (CLI) | payer MEDICARE, OTHER, SELFPAY ==
--- NOTE | 2021-12-21 | DI.MRI.S_ITS ---
PROCEDURE: MR HEAD/BRAIN WO CON INDICATIONS: Other abnormalities of gait and mobility TECHNIQUE: Non-contrast axial T1 spin echo, axial T2 fast spin echo, sagittal and axial FLAIR, coronal T2 fast spin echo, axial gradient echo, axial diffusion and ADC through the brain. COMPARISON: None. FINDINGS: Image quality: Excellent. CSF spaces: Ventricles appear symmetric in size and shape. Basal cisterns are patent. No extra-axial fluid collections. Brain: No intracranial bleeds or mass effects. There is cerebral volume loss for age. There are tfwh-[id number] periventricular and deep white matter chronic small vessel ischemic changes. Brainstem appears normal. Diffusion-weighted images show no acute ischemic insults. No chronic ischemic insults. Normal intravascular flow voids are present. Skull and face: Calvarial bone marrow is normal in signal. Orbits are normal. Sinuses: Sinuses and mastoids are clear. IMPRESSION: Age-related volume loss and rxiw-nd-ypoetgiv small vessel ischemic change. No evidence of acute intracranial process. Dictated by: Luis Vo M.D. on 12/21/2021 at 12:44 Approved by: Luis Vo M.D. on 12/21/2021 at 12:44
== END ==
PROVIDERS: PCP Family Medicine; Referring Provider Internal Medicine; Visit Provider Internal Medicine
DX: R26.89 Other abnormalities of gait and mobility (principal); R32 Unspecified urinary incontinence
CPT/HCPCS: 70551

== ENCOUNTER → 2022-04-18 07:52 | Outpatient (CLI) | payer MEDICARE, OTHER, SELFPAY ==
--- NOTE | 2022-04-18 | DI.ECHO.S_ITS ---
[facility] +---------+ : : [address] : : : : [id number] : : : : Phone: [phone]+ Echocardiogram Report + + :Name: KAMILLE PEÑA Study Date: 04/18/2022 Height: 65 in : :[facility] ReadingLocation: Weight: 142 lb : : Gender: Female BSA: 1.7 m2 : :: 1940 Age: 81 yrs BP: 164/100 mmHg: :Reason For Study: CHEST PAIN : :Ordering Physician: REYES, : :ELIO WALKER Performed By: Emperatriz Hanson : :Referring: ELIO CHAMBERS : + + Interpretation Summary The left ventricle is normal in size. There is mild concentric left ventricular hypertrophy. The ejection fraction is estimated to be 60-65%. The right ventricle is normal in size and function. No significant valvular pathology seen. The IVC is dilated (diameter is greater than 2.1 cm) yet it collapses greater than 50% with a sniff. This suggests a right atrial pressure of 8 mm Hg. Procedure: A two-dimensional transthoracic echocardiogram with color flow and Doppler was performed. The study quality was technically adequate. There is no prior echocardiogram noted for this patient. The patient was in sinus rhythm with heart rates between 63-70 bpm during the exam. Left Ventricle: The left ventricle is normal in size. There is mild concentric left ventricular hypertrophy. There is no thrombus. The ejection fraction is estimated to be 60-65%. There are no focal wall motion abnormalities. Diastolic parameters suggest a relaxation abnormality of the left ventricle, consistent with probable normal filling pressures. Right Ventricle: The right ventricle is normal in size and function. Atria: The left atrial size is normal. Right atrial size is normal. There is no Doppler evidence for an interatrial shunt. Mitral Valve: The mitral valve leaflets appear mildly thickened, but open well. There is mild to moderate mitral annular calcification. There is mild mitral regurgitation. Aortic Valve: The aortic valve is trileaflet. There is discrete nodular thickening of the non- coronary cusp. The aortic valve is mildly calcified. There is no aortic valve stenosis. No aortic regurgitation is present. Tricuspid Valve: The tricuspid valve is normal in structure and function. There is trace tricuspid regurgitation. Pulmonary artery pressures cannot be estimated because of the lack of a measurable TR jet velocity. Pulmonic Valve: The pulmonic valve leaflets are thin and pliable; valve motion is normal. There is no pulmonic valvular regurgitation. Great Vessels: The aortic root is normal size. The dimensions of the ascending aorta are normal. The IVC is dilated (diameter is greater than 2.1 cm) yet it collapses greater than 50% with a sniff. This suggests a right atrial pressure of 8 mm Hg. Pericardium/ Pleura There is no pericardial effusion. There is an anterior echo-free space consistent with a fat pad. There is no pleural effusion. MMode/2D Measurements & Calculations LVIDd: 3.8 cm LVOT diam: 2.0 cm LVIDs: 2.5 cm Ao root diam: 3.1 cm FS: 34.5 % asc Aorta Diam: 3.0 cm IVSd: 0.94 cm Ao Arch Diam (Prox Trans): 2.9 cm LVPWd: 0.95 cm LV chavarria. diameter/BSA (cm/m^2): 2.2 LV sys. diameter/BSA (cm/m^2): 1.4 LA A2 area: 17.0 cm2 RA long axis: 4.9 cm LA A4 area: 13.7 cm2 RA area: 14.9 cm2 LA length (vol): 4.4 cm RA vol: 38.1 ml LA vol: 44.6 ml RA : 22.3 ml/m2 LA vol index: 26.1 ml/m2 IVC diam: 2.1 cm RVD1 (basal): 2.7 cm RVD2 (mid): 2.5 cm TAPSE: 2.0 cm Doppler Measurements & Calculations Ao V2 max: 175.9 cm/sec LVOT Max Deshawn: 132.3 cm/sec Ao V2 mean: 119.6 cm/sec LV V1 max P.0 mmHg Ao max P.4 mmHg LV V1 VTI: 31.6 cm Ao mean P.5 mmHg ANA(I,D): 2.4 cm2 Ao V2 VTI: 41.4 cm ANA(V,D): 2.4 cm2 sev ratio: 0.76 ANA indexed to BSA (cm^2/m^2): 1.4 MV E max deshawn: 78.2 cm/sec PA V2 max: 87.5 cm/sec MV A max deshawn: 112.1 cm/sec PA V2 mean: 59.9 cm/sec MV E/A: 0.70 PA mean P.6 mmHg Med Peak E' Deshawn: 6.7 cm/sec PA pr(Accel): 36.2 mmHg E/E' med: 11.6 Lat Peak E' Deshawn: 6.8 cm/sec E/E' lat: 11.6 E/e' average: 11.6 MV dec time: 0.29 sec SV(LVOT): 101.4 ml Reading Physician:06:29 PM
--- NOTE | 2022-04-18 | DI.NM.S_ITS ---
PROCEDURE: NM PENELOPE PERF SPECT R&S PHARM Rest and pharmacological stress myocardial perfusion SPECT with gated imaging and ejection fraction RADIOPHARMACEUTICAL: 10.2 mCi Tc-99m tetrafosmin IV at rest and 25.4 mCi Tc-99m tetrafosmin IV at peak effect of pharmacological stress. [id number] was performed. INDICATIONS: CHEST PAIN TECHNIQUE: Radiopharmaceutical was injected at peak stress test, and also at rest. SPECT images were obtained. SPECT myocardial perfusion images were displayed in short axis, horizontal long axis, and vertical long axis views. Gated images were reviewed using Wow! Stuff software. COMPARISON: None. CARDIAC STRESS: A pharmacologic stress test was performed under the supervision of an attending staff, using an infusion of Regadenoson. Hemodynamic data: There is normal blood pressure and heart rate response to pharmacologic stress. Symptoms: The patient denied anginal chest pain. EKG: No diagnostic changes of ischemia; no ectopy. FINDINGS: Raw data: There is good myocardial uptake of radiotracer. No significant motion artifacts. Smdd-li-byjnm ratio is 0.34 (normal is less than 0.38 for tetrafosmin tracer). Left ventricle function: Gated images demonstrate normal left ventricular wall thickening. No segmental wall motion abnormalities. No transient ischemic dilation; TID is 1.09 (normal less than 1.3). Left ventricle resting end diastolic volume is 54 mL. Left ventricle stress ejection fraction is >75%; normal range is above 45%. Myocardial perfusion: There is normal distribution of activity in the right and left ventricular myocardium. No fixed or reversible perfusion defects. IMPRESSION: No evidence of pharmacologic induced ischemia or scar. Hyperdynamic left ventricular function. Dictated by: Isi Islas D.O. on 04/18/2022 at 15:49 Approved by: Isi Islas D.O. on 04/18/2022 at 15:51
[2022-04-18 09:21] LABS: COVID19 -Nasal RAPID Negative (Negative)
== END ==
PROVIDERS: PCP Family Medicine; Referring Provider Nurse Practitioner Family; Visit Provider Nurse Practitioner Family
DX: I34.0 Nonrheumatic mitral (valve) insufficiency (principal); R07.9 Chest pain, unspecified; I45.10 Unspecified right bundle-branch block; I12.9 Hypertensive chronic kidney disease with stage 1 through stage 4 chronic kidney disease, or unspecified chronic kidney disease; N18.9 Chronic kidney disease, unspecified; E78.2 Mixed hyperlipidemia; R53.83 Other fatigue; R42 Dizziness and giddiness; Z20.822 Contact with and (suspected) exposure to COVID-19
CPT/HCPCS: 78452; 87635; 93017; 93306; A9502; J2785

== ENCOUNTER 2023-06-25 16:56 | Emergency (ER) | payer MEDICARE, OTHER, SELFPAY ==
[2023-06-25 17:39] VITALS: BP 165/81; PULSE 65; RESP 20; TEMP 36.9; O2SAT 99; BMI 23.4
--- NOTE | 2023-06-25 17:52 | DI.US.S_ITS ---
PROCEDURE: US PERIPH VENOUS LOW EXTREM LT INDICATIONS: Pain and redness to L leg. No trauma TECHNIQUE: Real-time imaging, as well as color and pulse Doppler interrogation, were performed of the lower extremity deep veins from the inguinal ligament to the popliteal fossa, with documentation of the visualized calf veins. COMPARISON: [facility], , PERIP VENOUS LOW EXTREM BI, 06/25/2019, 21:27. FINDINGS: The common femoral, femoral, popliteal, and the visualized calf veins are normally compressible, and free of intraluminal thrombus. Color and pulse Doppler demonstrate normal phasic intraluminal flow. There is normal augmentation response to distal compression maneuver. IMPRESSION: No findings of lower extremity deep venous thrombosis. Dictated by: Amilcar Chase M.D. on 06/25/2023 at 17:38 Approved by: Amilcar Chase M.D. on 06/25/2023 at 17:39
--- NOTE | 2023-06-25 19:28 | ED_ITS ---
HPI - Extremity Injury (Lower) General Chief Complaint: Extremity Injury, Lower Stated Complaint: sent over by [place] walk in for us Time Seen by Provider: 06/25/23 19:19 Source: patient Mode of arrival: Ambulatory History of Present Illness HPI Narrative: 82-year-old female who is here for evaluation of redness and discomfort on the front/middle portion of her left leg just distal to her knee. No trauma. He did start earlier today. She did have some pain behind her knee. She went to an outside walk-in clinic and was advised to come to the emergency department for evaluation of potential DVT. Related Data Home Medications Medication Instructions Recorded Confirmed alprazolam 0.25 mg tablet 0.25 mg PO DAILY PRN Anxiety 06/25/19 06/25/19 ascorbic acid (vitamin C) 1,000 mg 1,000 mg PO DAILY 06/25/19 06/25/19 tablet (Vitamin C) cholecalciferol (vitamin D3) 25 1,000 unit PO DAILY 06/25/19 06/25/19 mcg (1,000 unit) capsule (Vitamin D3) nortriptyline 10 mg capsule 10 mg PO BEDTIME PRN Insomnia 06/25/19 06/25/19 vitamins A,C,C-skrp-imdfez 4,296 1 cap PO DAILY 06/25/19 06/25/19 mcg-226 mg-90 mg capsule (ICaps AREDS) Previous Rx's Medication Instructions Recorded cyclobenzaprine 10 mg tablet 10 mg PO TID PRN muscle spasm #20 04/10/21 tabs hydrocodone 5 mg-acetaminophen 325 1 tab PO Q4-6H PRN pain #14 tabs 04/10/21 mg tablet lidocaine 5 % topical patch 1 patch topical DAILY PRN pain #15 04/10/21 ea cephalexin 500 mg capsule 500 mg PO QID 7 days #28 caps 06/25/23 Allergies Allergy/AdvReac Type Severity Reaction Status Date / Time Sulfa (Sulfonamide Allergy Verified 06/25/23 17:49 Antibiotics) Review of Systems Constitutional Constitutional: Reports system reviewed and no additional complaints, except as documented Musculoskeletal Musculoskeletal: Reports system reviewed and no additional complaints, except as documented Integumentary/Breasts Skin/Breast: Reports system reviewed and no additional complaints, except as documented Neurologic Neurologic: Reports system reviewed and no additional complaints, except as documented Hematologic/Lymphatic On Anticoagulants: No Patient History Medical History Hypertension Hyperlipidemia Social History Smoking Status: Never smoker Smoking Status: Never smoker alcohol intake frequency: 0-2 drinks per day Substance Use Type: does not use Exam Initial Vital Signs Initial Vital Signs: Vital Signs Temperature 98.4 F 06/25/23 17:39 Pulse Rate 65 06/25/23 17:39 Respiratory Rate 20 06/25/23 17:39 Blood Pressure 165/81 H 06/25/23 17:39 Pulse Oximetry 99 06/25/23 17:39 Oxygen Delivery Method Room Air 06/25/23 17:39 Const General: cooperative and comfortable HENMT Head: normal to inspection and normocephalic GI Inspection: normal to inspection Skin Other: Patient with warmth and redness to the anterior/medial aspect of the left leg just distal to the knee. It is tender to palpation. Neuro Sensory Exam: no sensory deficits noted Extrem Other: No tenderness along the distribution of the deep veins to the left lower extremity Course Orders Ordered: ED Orders 06/25/23 17:52 US periph venous low extrem lt Stat Discontinued Medications Cephalexin HCl (Cephalexin 250 Mg Capsule) 500 mg PO NOW ONE Stop: 06/25/23 19:29 Last Admin: 06/25/23 19:38 Dose: 500 mg Documented By: AP Vital Signs Vital signs: Vital Signs - 8 hr 06/25/23 17:39 06/25/23 19:50 Temperature 98.4 F 98.4 F Pulse Rate 65 76 Respiratory Rate 20 18 Blood Pressure 165/81 H 180/84 H Pulse Oximetry 99 99 Oxygen Delivery Method Room Air Room Air MDM - Extremity Injury (Lower) Imaging Data US - DVT: Radiologist's Impression: PROCEDURE: US PERIPH VENOUS LOW EXTREM LT INDICATIONS: Pain and redness to L leg. No trauma TECHNIQUE: Real-time imaging, as well as color and pulse Doppler interrogation, were performed of the lower extremity deep veins from the inguinal ligament to the popliteal fossa, with documentation of the visualized calf veins. COMPARISON: [facility], , US PERIPH VENOUS LOW EXTREM BI, 06/25/2019, 21:27. FINDINGS: The common femoral, femoral, popliteal, and the visualized calf veins are normally compressible, and free of intraluminal thrombus. Color and pulse Doppler demonstrate normal phasic intraluminal flow. There is normal augmentation response to distal compression maneuver. IMPRESSION: No findings of lower extremity deep venous thrombosis. MDM Narrative Medical decision making narrative: Ultrasound has no signs of DVT. She does have redness and tenderness to warmth over the left anteromedial portion distal to the knee which would be consistent with a cellulitis or potentially a phlebitis. Will start the patient on antibiotics. Was given 1st dose here in the ER and a prescription was sent to the pharmacy of her choice. No indication for x-rays. No indication for admission to the hospital. She was given return precautions. She expressed understanding and agreement. Discharge Plan Departure Patient Disposition: Home Clinical Impression: Cellulitis Instructions: Cellulitis Activity Restrictions/Additional Instructions: Continue to take all of your medications as directed. Use the antibiotics as directed. You can wear your compression stockings if you would like. Return to the emergency department for new or worsening symptoms. Prescriptions: New cephalexin 500 mg capsule 500 mg PO QID 7 Days Qty: 28 0RF No Action ascorbic acid (vitamin C) [Vitamin C] 1,000 mg tablet 1,000 mg PO DAILY alprazolam 0.25 mg tablet 0.25 mg PO DAILY PRN (Reason: Anxiety) nortriptyline 10 mg capsule 10 mg PO BEDTIME PRN (Reason: Insomnia) cholecalciferol (vitamin D3) [Vitamin D3] 1,000 unit capsule 1,000 unit PO DAILY ICaps AREDS 14,320-226-200 gybw-mv-lwgk capsule 1 cap PO DAILY cyclobenzaprine 10 mg tablet 10 mg PO TID PRN (Reason: muscle spasm) Qty: 20 0RF hydrocodone-acetaminophen 5-325 mg tablet 1 tab PO Q4-6H PRN (Reason: pain) Qty: 14 0RF lidocaine 5 % adhesive patch,medicated 1 patch topical DAILY PRN (Reason: pain) Qty: 15 0RF Rx Instructions: leave on most painful area for up to 12 hrs Referrals: Loyd Cadena MD [Primary Care Provider] - Stand Alone Forms: Patient Portal/API
[2023-06-25] MEDS: cephALEXin 250 MG CAPSULE 500 MG PO (19:38)
[2023-06-25 19:50] VITALS: BP 180/84; PULSE 76; RESP 18; TEMP 36.9; O2SAT 99
--- NOTE | 2023-06-25 19:50 | PC.NURSE ---
Exam deferred to DR Onofre.
== END 2023-06-25 19:51 | disposition home or self-care (01) ==
PROVIDERS: Emergency Provider Emergency Medicine; PCP Family Medicine
DX: L03.116 Cellulitis of left lower limb (principal)
CPT/HCPCS: 93971; 99283

== ENCOUNTER → 2024-03-25 16:15 | Outpatient (CLI) | payer MEDICARE, OTHER, SELFPAY ==
--- NOTE | 2024-03-25 16:28 | EKG_ITS ---
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
[2024-03-25 17:07] LABS: Appearance Urine UA CLEAR; Bilirubin Urine UA NEGATIVE (NEGATIVE); Color Urine UA YELLOW; Glucose Urine UA NEGATIVE (Negative); Ketones Urine UA NEGATIVE (NEGATIVE); Leukocyte Esterase Urine UA NEGATIVE (NEGATIVE); Nitrite Urine UA NEGATIVE (Negative); Occult Blood Urine UA NEGATIVE (Negative); Protein Urine UA NEGATIVE (Negative); Urobilinogen Urine UA 0.2 E.U./dL (0.2)
[2024-03-25 17:10] LABS: Add Manual Diff / Slide Review NO; Basophils Absolute Auto 100 /uL (0-100); Basophils Percent Auto 0.9 % (0-2); Eosinophils Absolute Auto 200 /uL (0-450); Hematocrit 40.6 % (36-46); Hemoglobin 13.5 g/dL (12.0-16.0); Lymphocytes Absolute Auto 3000 /uL (1100-4500); Lymphocytes Percent Auto 36.1 % (25-40); Mean Corpuscular HGB Conc 33.4 % (30-36); Mean Corpuscular Hemoglobin 29.1 PG (26-34); Mean Corpuscular Volume 87.3 fL (80-100); Monocytes Absolute Auto 500 /uL (0-900); Monocytes Percent Auto 5.8 % (3-14); Neutrophils Absolute Auto 4600 /uL (1500-7000); Neutrophils Percent Auto 55.2 % (50-75); Platelet Count 237 X10^3/uL (150-400); Red Blood Cell Count 4.65 X10^6/uL (4.0-5.2); Red Cell Distribution Width 13.6 % (11.6-14.8); White Blood Cell Count 8.3 X10^3/uL (4.5-11.0)
[2024-03-25 17:20] LABS: BUN Creatinine Ratio 26.3 (6-22); Blood Urea Nitrogen 25 mg/dL (7-17); Calcium 9.4 mg/dL (8.4-10.2); Carbon Dioxide 28 mmol/L (22-32); Chloride 108 mmol/L (98-107); Estimated Glomerular Filt Rate 59 mL/min (>60); Glucose 92 mg/dL (80-110); HEMOLYSIS < 15 (0-50); Potassium 3.8 mmol/L (3.4-5.1); Sodium 140 mmol/L (137-145)
[2024-03-25 17:21] LABS: Urine Volume 10mL (spun); pH Urine UA 5.5 (4.5-8.0)
[2024-03-25 17:26] LABS: Bacteria Urine Occasional (0-1); Culture Indicated Urine Cult Not Indicated; RBC Urine None Seen (0-5/HPF); Squamous Epithelial Cell Urine None Seen (0-5/HPF); WBC Urine None Seen (0-5/HPF)
== END ==
PROVIDERS: PCP Family Medicine; Referring Provider Orthopaedic Surgery; Visit Provider Orthopaedic Surgery
DX: Z01.818 Encounter for other preprocedural examination (principal); N39.0 Urinary tract infection, site not specified; Z01.812 Encounter for preprocedural laboratory examination
CPT/HCPCS: 36415; 80048; 81001; 85025; 93005

== ENCOUNTER → 2024-06-19 10:47 | Outpatient (CLI) | payer MEDICARE, OTHER, SELFPAY ==
--- NOTE | 2024-06-19 | DI.CT.S_ITS ---
PROCEDURE: CT UE RT WO CON INDICATIONS: Pain in right shoulder TECHNIQUE: Noncontrast 0.75 mm thick sections acquired from the acromioclavicular joint to the inferior scapula, with coronal and sagittal reformatting. COMPARISON: None. FINDINGS: Image quality: Excellent. Bones: No significant degenerative changes of the acromioclavicular joint. Severe degenerative changes of the glenohumeral joint, with joint space narrowing, and mild humeral head osteophytosis. Mild retroversion of the glenoid. No acute fracture or dislocation of the right shoulder. Soft tissues: Large glenohumeral effusion. Severe tenosynovitis of the extra-articular biceps tendon. Large subcoracoid and subscapularis bursitis. Small calcification at the axillary pouch, which may represent small intra-articular body (3:86). Severe fatty atrophy of the teres minor. No axillary lymphadenopathy. Septal thickening at the right lung apex, raising concern for mild pulmonary edema. No visualized mediastinal lymphadenopathy. IMPRESSION: 1. No significant degenerative changes acromioclavicular joint. 2. Severe degenerative changes of the glenohumeral joint with mild glenoid retroversion. 3. Large glenohumeral effusion, severe tenosynovitis of the extra-articular biceps tendon. Large subcoracoid and subscapularis bursitis. 4. Mild pulmonary edema. Dictated by: Charlene Trotter M.D. on 06/21/2024 at 14:38 Approved by: Charlene Trotter M.D. on 06/21/2024 at 14:48
== END ==
PROVIDERS: PCP Family Medicine; Referring Provider Orthopaedic Surgery; Visit Provider Orthopaedic Surgery
DX: J81.1 Chronic pulmonary edema (principal); M65.821 Other synovitis and tenosynovitis, right upper arm; M75.51 Bursitis of right shoulder; M25.511 Pain in right shoulder; M25.411 Effusion, right shoulder
CPT/HCPCS: 73200

== ENCOUNTER → 2024-09-09 | Outpatient (CLI) | payer MEDICARE, OTHER, SELFPAY ==
--- NOTE | 2024-09-09 10:37 | DI.US.S_ITS ---
PROCEDURE: US VENOUS INSUFFICIENCY BILAT INDICATIONS: CHRONIC VENOUS INSUFFICIENCY OF LOWER EXTREMITY TECHNIQUE: Real time scanning was performed of the lower extremity venous system, with imaging documentation, as well as Color and pulse Doppler interrogation. COMPARISON: None. FINDINGS: RIGHT LOWER EXTREMITY: The deep veins are normally compressible, and free of intraluminal thrombus. Color and pulse Doppler demonstrate normal intravascular flow. There is normal augmentation with distal compression maneuver. Reflux within the common femoral vein. Greater saphenous vein (GSV): Normally 4 mm or less in diameter, with any reflux less than 0.5 seconds. Saphenofemoral junction (SFJ): 7 mm. No reflux. Proximal GSV: 3 mm. No reflux. Mid GSV: 2 mm. No reflux. Distal GSV: 2 mm. No reflux. Calf GSV: 2 mm and reflux with duration estimated at 0.7 seconds. Anterior accessory GSV (AAGSV): No reflux. Small saphenous vein (SSV): No reflux. Python Django Developer veins: 5 mm calf public relations senior associate with reflux. LEFT LOWER EXTREMITY: The deep veins are normally compressible, and free of intraluminal thrombus. Color and pulse Doppler demonstrate normal intravascular flow. There is normal augmentation with distal compression maneuver. Reflux involving the common femoral vein. Greater saphenous vein (GSV): Normally 4 mm or less in diameter, with any reflux less than 0.5 seconds. Saphenofemoral junction (SFJ): 7 mm. No reflux. Proximal GSV: 4 mm and reflux, duration 0.8 seconds Mid GSV: 3 mm and reflux, duration 0.6 seconds Distal GSV: 4 mm and reflux, duration 0.6 seconds Calf GSV: 3 mm and reflux, duration 2.7 seconds Anterior accessory GSV (AAGSV): No reflux Small saphenous vein (SSV): No reflux Python Django Developer veins: 3 mm distal calf public relations senior associate with reflux, duration 1.7 seconds. 3 mm ankle public relations senior associate with reflux, duration 0.7 seconds. IMPRESSION: 1. Reflux involving the common femoral vein bilaterally. 2. Reflux involving the greater saphenous vein bilaterally. 3. Bilateral perforators. Dictated by: Santino BRISENO Interpreted: Ann Marie Howard MD on 09/10/2024 at 15:37 Transcribed by: CURT on 09/10/2024 at 15:41 Approved by: Ann Marie Howard M.D. on 09/14/2024 at 11:39
== END ==
PROVIDERS: PCP Family Medicine; Referring Provider Internal Medicine Rheumatology; Visit Provider Internal Medicine Rheumatology
DX: I87.2 Venous insufficiency (chronic) (peripheral) (principal)
CPT/HCPCS: 93970